=== PATIENT | female | born 1985 | race African-American/Black ===

== ENCOUNTER 2024-05-19 03:28 | Emergency (ER) | payer MEDICAID, OTHER | END 2024-05-19 05:23 | disposition home or self-care (01) | LOC: JD.ED 03:28 | DX: R07.89 Other chest pain (principal); E66.9 Obesity, unspecified; Z86.16 Personal history of COVID-19; Z68.38 Body mass index [BMI] 38.0-38.9, adult | CPT/HCPCS: 36415; 84484; 93005; 99285 ==